=== PATIENT | female | born 1985 | race Caucasian/White ===

== ENCOUNTER 2016-12-13 16:02 | Emergency (ER) | payer BC ==
[2016-12-13] MEDS ORDERED: NORMAL SALINE 1000 ML 1,000 ML IV ONE (16:17)
--- NOTE | 2016-12-13 16:20 | ER Document Report ---
ED Medical Screen (RME) - General Chief Complaint: General Weakness Stated Complaint: FATIGUE Time Seen by Provider: 12/13/16 16:17 Mode of Arrival: Ambulatory Information source: Patient TRAVEL OUTSIDE OF THE [place] IN LAST 30 DAYS: No - HPI Patient complains to provider of: weakness/fatigue Onset: Other - pt states she was recetnly diagnosed by PCP with "mono" but has had extreme weakness, fatigue and nausea with vomiting over the past 1-2 days. - Related Data Allergies/Adverse Reactions: No Known Allergies Allergy (Verified 12/13/16 16:14) Past Medical History - Social History Frequency of alcohol use: None Drug Abuse: None Renal/ Medical History: Reports: Hx Ovarian Cysts. Denies: Hx Peritoneal Dialysis Physical Exam - Vital signs Vitals: Temp Pulse Resp BP Pulse Ox 97.9 F 82 18 113/80 100 12/13/16 16:06 12/13/16 16:06 12/13/16 16:06 12/13/16 16:06 12/13/16 16:06 Course - Vital Signs Vital signs: Temp Pulse Resp BP Pulse Ox 97.9 F 82 18 113/80 100 12/13/16 16:06 12/13/16 16:06 12/13/16 16:06 12/13/16 16:06 12/13/16 16:06
[2016-12-13 16:49] LABS: ABSOLUTE EOSINOPHILS # (AUTO) 0.1 10^3/uL (0.0-0.6); ABSOLUTE LYMPHOCYTES (AUTO) 1.5 10^3/uL (0.5-4.7); ABSOLUTE MONOCYTES (AUTO) 0.5 10^3/uL (0.1-1.4); ABSOLUTE NEUT (AUTO) 5.6 10^3/uL (1.7-8.2); BASOPHILS % (AUTO) 0.3 % (0-2); EOSINOPHILS % (AUTO) 0.9 % (0-6); HEMATOCRIT 43.8 % (36.0-47.0); HEMOGLOBIN 14.3 g/dL (12.0-15.5); HGB HCT DIFFERENCE -0.9; LYMPHOCYTES % (AUTO) 19.4 % (13-45); MEAN CORPUSCULAR HEMOGLOBIN 29.9 pg (27.0-33.4); MEAN CORPUSCULAR HGB CONC 32.5 g/dL (32.0-36.0); MEAN CORPUSCULAR VOLUME 92 fl (80-97); MONOCYTES % (AUTO) 6.7 % (3-13); RED BLOOD COUNT 4.77 10^6/uL (3.72-5.28); RED CELL DISTRIBUTION WIDTH 12.4 % (11.5-14.0); SEGMENTED NEUTROPHILS % (AUTO) 72.7 % (42-78); WHITE BLOOD COUNT 7.8 10^3/uL (4.0-10.5)
[2016-12-13 16:56] LABS: APPEARANCE,URINE SLIGHTLY-CLOUDY; BILIRUBIN,URINE NEGATIVE (NEGATIVE); GLUCOSE, URINE NEGATIVE (NEGATIVE); KETONES,URINE NEGATIVE (NEGATIVE); LEUKOCYTE ESTERASE,URINE LARGE (NEGATIVE); NITRITE,URINE NEGATIVE (NEGATIVE); PROTEIN,URINE NEGATIVE (NEGATIVE); URINE SPECIFIC GRAVITY 1.021; UROBILINOGEN,URINE NEGATIVE mg/dL (<2.0)
[2016-12-13 17:07] LABS: ALANINE AMINOTRANSFERASE 26 U/L (9-52); ALBUMIN 4.2 g/dL (3.5-5.0); ALKALINE PHOSPHATASE 78 U/L (38-126); ANION GAP 9 (5-19); ASPARTATE AMINO TRANSFERASE 20 U/L (14-36); BILIRUBIN,DIRECT 0.2 mg/dL (0.0-0.4); BILIRUBIN,TOTAL 0.5 mg/dL (0.2-1.3); BLOOD UREA NITROGEN 15 mg/dL (7-20); CALCIUM 9.3 mg/dL (8.4-10.2); CARBON DIOXIDE 27 mmol/L (22-30); CHLORIDE 102 mmol/L (98-107); CREATININE RESULT 0.72 mg/dL (0.52-1.25); GLUCOSE 122 mg/dL (75-110); POTASSIUM 4.1 mmol/L (3.6-5.0); SODIUM 138.4 mmol/L (137-145); TOTAL PROTEIN 7.6 g/dL (6.3-8.2)
--- NOTE | 2016-12-13 17:36 | RADIOLOGY REPORT (SQ) ---
EXAM DESCRIPTION: CHEST PA/LAT COMPLETED DATE/TIME: 12/13/2016 5:28 pm REASON FOR STUDY: weakness COMPARISON: None. EXAM PARAMETERS: NUMBER OF VIEWS: two views TECHNIQUE: Digital Frontal and Lateral radiographic views of the chest acquired. RADIATION DOSE: NA LIMITATIONS: none FINDINGS: LUNGS AND PLEURA: No opacities, masses or pneumothorax. No pleural effusion. MEDIASTINUM AND HILAR STRUCTURES: No masses or contour abnormalities. HEART AND VASCULAR STRUCTURES: Heart normal size. No evidence for failure. BONES: No acute findings. HARDWARE: None in the chest. OTHER: No other significant finding. IMPRESSION: NO SIGNIFICANT RADIOGRAPHIC FINDING IN THE CHEST. TECHNICAL DOCUMENTATION: JOB ID: [id number] [employer]- All Rights Reserved
--- NOTE | 2016-12-13 17:46 | ER Document Report ---
ED Dizziness/Weakness - General Chief Complaint: General Weakness Stated Complaint: FATIGUE Time Seen by Provider: 12/13/16 16:17 Mode of Arrival: Ambulatory Information source: Patient Notes: Patient is a 31-year-old female who was diagnosed with mono by blood test 2 weeks ago by her primary care provider. Patient states that she has been fatigued for a few weeks prior to going and being seen. She states that this time that she is still very fatigued and that she was also diagnosed with an enlarged spleen by her primary care provider, not by any ultrasound or other testing, and states that her left upper abdomen is still hurting her. She states that she has not had any injury to the abdomen and that she has been "protecting her spleen." She admits to some nausea today as she bent over and had some upper abdominal pain in that area, denies any vomiting, diarrhea, fever , chills, sore throat, chest pain. TRAVEL OUTSIDE OF THE [place] IN LAST 30 DAYS: No - Related Data Allergies/Adverse Reactions: No Known Allergies Allergy (Verified 12/13/16 16:14) Past Medical History - General Information source: Patient - Social History Smoking Status: Never Smoker Frequency of alcohol use: None Drug Abuse: None Family History: Reviewed & Not Pertinent Patient has suicidal ideation: No Patient has homicidal ideation: No Renal/ Medical History: Reports: Hx Ovarian Cysts. Denies: Hx Peritoneal Dialysis Review of Systems - Review of Systems Constitutional: See HPI EENT: No symptoms reported Cardiovascular: No symptoms reported Respiratory: No symptoms reported Gastrointestinal: See HPI Genitourinary: No symptoms reported Female Genitourinary: No symptoms reported Musculoskeletal: No symptoms reported Skin: No symptoms reported Hematologic/Lymphatic: No symptoms reported Neurological/Psychological: No symptoms reported Physical Exam - Vital signs Vitals: Temp Pulse Resp BP Pulse Ox 97.9 F 82 18 113/80 100 12/13/16 16:06 12/13/16 16:06 12/13/16 16:06 12/13/16 16:06 12/13/16 16:06 - Notes Notes: PHYSICAL EXAMINATION: GENERAL: Well-appearing and in no acute distress. HEAD: Atraumatic, normocephalic. EYES: Pupils equal round and reactive to light, extraocular movements intact, sclera anicteric, conjunctiva are normal. ENT: ear canals without erythema or foreign body, TMs pearly bolaños with good bony landmarks, nares patent, oropharynx clear without exudates. Moist mucous membranes. NECK: Normal range of motion, supple without lymphadenopathy LUNGS: CTAB and equal. No wheezes rales or rhonchi. HEART: Regular rate and rhythm without murmurs ABDOMEN: Soft, enlarged spleen, LUQ tenderness. No guarding, no rebound BACK: no vertebral tenderness, normal ROM GI/: no CVA tenderness EXTREMITIES: Normal range of motion, no pitting edema. No cyanosis. NEUROLOGICAL: Cranial nerves grossly intact. Normal sensory/motor exams. PSYCH: Normal mood, normal affect. SKIN: Warm, Dry, normal turgor, no rashes or lesions noted Course - Re-evaluation Re-evalutation: 12/13/16 17:43 Unremarkable today including a negative mono test, white blood cell count is normal. Patient actually looks very well. Will send patient home with instructions to drink plenty of fluids and have advised her that the fatigue may last for months after mono is diagnosed. - Vital Signs Vital signs: Temp Pulse Resp BP Pulse Ox 97.9 F 82 18 113/80 100 12/13/16 16:06 12/13/16 16:06 12/13/16 16:06 12/13/16 16:06 12/13/16 16:06 - Laboratory Result Diagrams: 12/13/16 16:20 12/13/16 16:20 Laboratory results interpreted by me: 12/13/16 12/13/16 16:20 16:20 Glucose 122 H Urine Blood SMALL H Ur Leukocyte Esterase LARGE H Discharge - Discharge Clinical Impression: Fatigue Qualifiers: Fatigue type: unspecified Qualified Code(s): R53.83 - Other fatigue Condition: Stable Disposition: HOME, SELF-CARE Instructions: Mononucleosis ([facility]) Additional Instructions: Return immediately for any new or worsening symptoms. Follow up with primary care provider, call tomorrow to make followup appointment. Prescriptions: Ondansetron [Zofran Odt 4 mg Tablet] 1 - 2 tab PO Q4H PRN #15 tab.rapdis PRN Reason: For Nausea/Vomiting
[2016-12-13 18:06] VITALS: BP 126/79
--- NOTE | 2016-12-13 20:16 | EKG REPORT ---
SEVERITY:- NORMAL ECG - SINUS RHYTHM : Confirmed by: Aiden Desouza MD 13-Dec-2016 20:15:34
== END 2016-12-13 18:05 | disposition home or self-care (01) ==
LOC: ER 16:02
DX: R53.83 Other fatigue (principal)
CPT/HCPCS: 36415; 71020; 80053; 81001; 81025; 85025; 86308; 93005; 93010; 99285

== ENCOUNTER 2017-05-19 09:28 | Day surgery (SDC) | payer BC ==
[2017-05-16 11:11] LABS: APPEARANCE,URINE SLIGHTLY-CLOUDY; BILIRUBIN,URINE NEGATIVE (NEGATIVE); GLUCOSE, URINE NEGATIVE (NEGATIVE); KETONES,URINE NEGATIVE (NEGATIVE); LEUKOCYTE ESTERASE,URINE MODERATE (NEGATIVE); NITRITE,URINE NEGATIVE (NEGATIVE); PROTEIN,URINE NEGATIVE (NEGATIVE); UROBILINOGEN,URINE NEGATIVE mg/dL (<2.0)
[2017-05-16 11:15] LABS: HEMATOCRIT 41.1 % (36.0-47.0); HEMOGLOBIN 14.1 g/dL (12.0-15.5); HGB HCT DIFFERENCE 1.2; MEAN CORPUSCULAR HEMOGLOBIN 31.2 pg (27.0-33.4); MEAN CORPUSCULAR HGB CONC 34.4 g/dL (32.0-36.0); MEAN CORPUSCULAR VOLUME 91 fl (80-97); RED BLOOD COUNT 4.52 10^6/uL (3.72-5.28); RED CELL DISTRIBUTION WIDTH 12.7 % (11.5-14.0)
[2017-05-16 11:51] LABS: ALANINE AMINOTRANSFERASE 31 U/L (9-52); ALBUMIN 4.2 g/dL (3.5-5.0); ALKALINE PHOSPHATASE 67 U/L (38-126); ANION GAP 11 (5-19); ASPARTATE AMINO TRANSFERASE 27 U/L (14-36); BILIRUBIN,DIRECT 0.1 mg/dL (0.0-0.4); BILIRUBIN,TOTAL 0.2 mg/dL (0.2-1.3); BLOOD UREA NITROGEN 17 mg/dL (7-20); CALCIUM 9.4 mg/dL (8.4-10.2); CARBON DIOXIDE 27 mmol/L (22-30); CHLORIDE 105 mmol/L (98-107); CREATININE RESULT 0.66 mg/dL (0.52-1.25); GLUCOSE 85 mg/dL (75-110); POTASSIUM 4.2 mmol/L (3.6-5.0); TOTAL PROTEIN 7.2 g/dL (6.3-8.2)
[~2017-05-19 09:28] MED LIST: CEFAZOLIN 1 GM/D5W RTU 1 GM/50 ML RTUPB IV PRN; LACTATED RINGERS 1000 ML IV PRN; LIDOCAINE 0.5% INJ-PF (5 MG/ML) 50 ML SDV SUBCUT PRN; SCOPOLAMINE HYDROBROMIDE 1.5 MG PATCH.TD72 TD PRN
[2017-05-19] MEDS ORDERED: FENTANYL CITRATE INJ/PF 100 MCG/2 ML AMPUL ONE (10:47)
[2017-05-19] MEDS ORDERED: PROPOFOL INJ 200 MG/20 ML VIAL IV ONE (10:47)
[2017-05-19] MEDS ORDERED: MIDAZOLAM 2 MG/2 ML INJ ONE (10:47)
[2017-05-19] MEDS ORDERED: ACETAMINOPHEN 100 ML IV ONE (10:48)
[2017-05-19] MEDS ORDERED: FAMOTIDINE INJ/PF 20 MG/2 ML SDV IV ONE (11:30)
[2017-05-19] MEDS ORDERED: LIDOCAINE 1% INJ-PF (10 MG/ML) 30 ML SDV ONE (11:47)
[2017-05-19] MEDS ORDERED: BUPIVACAINE HCL 0.25 % INJ/PF (2.5 MG/1 ML) 30 ML VIAL ONE (11:47)
[2017-05-19] MEDS ORDERED: PROMETHAZINE HCL INJ 25 MG/1 ML VIAL IV PRN ×2 (12:45→14:17)
[2017-05-19] MEDS ORDERED: DIPHENHYDRAMINE HCL 50 MG/ML VIAL IV PRN (12:45)
[2017-05-19] MEDS ORDERED: MORPHINE SULFATE 10 MG/ML INJ IV PRN (12:45)
[2017-05-19] MEDS ORDERED: FENTANYL CITRATE INJ/PF 100 MCG/2 ML AMPUL IV PRN ×3 (12:45)
[2017-05-19] MEDS: FENTANYL CITRATE INJ/PF 100 MCG/2 ML AMPUL ONE ×2 (13:30→13:35)
[2017-05-19] MEDS: MORPHINE SULFATE 10 MG/ML INJ ONE ×2 (13:55→14:00)
--- NOTE | 2017-05-19 14:13 | OPERATIVE REPORT E ---
Operative Report NAME: EILEEN DICKERSON : 1985 AGE: 31Y DATE OF SURGERY: 05/19/2017 ROOM: PREOPERATIVE DIAGNOSES: 1. Undesired fertility. 2. Dysfunctional uterine bleeding. POSTOPERATIVE DIAGNOSES: 1. Undesired fertility. 2. Dysfunctional uterine bleeding. SURGERIES: 1. D and C. 2. Hysteroscopy. 3. Novasure. 3. Laparoscopic tubal with Filshie clips. SURGEON: JULIAN DANG M.D. ANESTHESIA: General and 0.25% Marcaine. ESTIMATED BLOOD LOSS: Negligible. PERTINENT HISTORY AND OPERATIVE FINDINGS: This is a 31-year-old female desirous of elective sterilization who is having some trouble with irregular bleeding. Ultimately, after hearing risks and benefits, decided to go ahead with a Novasure and laparoscopic tubal. At the time of surgery, the vagina and vulva appeared to be normal. The cervix was consistent with a multiparous state. Uterus appeared to be normal. The tubes and ovaries appeared to be normal. There was a corpus luteum on the right tube measuring about 2.5 cm. The liver was visualized. It appeared to be normal. The gallbladder appeared to be normal. The *------* essentially appeared to be normal. OPERATIVE PROCEDURE: Patient was brought into the OR, placed on the table in the supine position, inducted under general anesthesia. Following this, the bladder was drained of about 200 mL of clear yellow urine and a pelvic under anesthesia was done. A vag speculum was inserted and the cervix was grasped on its anterior lip with a single-toothed tenaculum and an Allis. The cervical canal was then dilated with Hegar dilators. We did get a cervical length of 4 cm. The probe was inserted and that was consistent with 9 cm, so we had an endometrial cavity length of 5 cm. Having accomplished the dilatation, a tenaculum probe was inserted. The other equipment was removed. Attention was turned toward the abdominal wall. A Veress needle was introduced umbilically and carried through the various layers until the abdominal cavity was entered. Upon entering the abdominal cavity, approximately 3.5 L of CO2 were injected to a pressure of 15 cm of water. The opening pressure was 5 cm. Having established a pneumoperitoneum, the Veress needle was removed. A small incision was made infraumbilically. Through this incision, a trocar and sleeve were inserted. The laparoscope was then put through the sleeve after the trocar was removed. The second incision was made suprapubically. Through this incision, a trocar and sleeve were inserted. The trocar was removed, and through the sleeve, the Filshie clip applicator was inserted. The tubes had the Filshie clip applied bilaterally. We did then look around the abdomen. The liver, as stated, looked normal. She had that small cyst on the right ovary. Otherwise, everything looked okay and terminated this part of the procedure. The lower sleeve was removed. There was no evidence of active bleeding. The CO2 was allowed to escape. The upper sleeve was removed. The patient then had 4 mL of 0.25% Marcaine with 1% lidocaine injected in the subumbilical incision and another 4 mL of 0.25% Marcaine with 1% Xylocaine injected in the suprapubic incision. The fascias were then closed in both these incisions with interrupted 0 Vicryl. The skin edges were brought together and the subumbilical incision with subcuticular 4-0 Prolene in the skin edges and the suprapubic incision were closed with an interrupted 4-0 Prolene. Bandages were applied. Attention was turned back toward the pelvis. The weighted speculum was reinserted. The cervix was grasped on its anterior lip with a single-toothed tenaculum and Allis. The cervix was dilated with Hegar dilators. Before entering the hysteroscope, a curettage was carried out. There was minimal, if any, tissue return. Polyp forceps did not return any tissue. The hysteroscope was then flushed with saline and inserted through the cervix. The contents of the uterus were visualized. There was no evidence of any pathology. The excess saline was then suctioned back out and we prepared to do the Novasure. The equipment was removed. It was then flushed and gently inserted through the cervix. It was gently opened up, then going north, south, east, west, and rotating it 90 degrees in between. We developed a cavity width of 4 cm. Having established this, after doing those procedures about 3 times, the plunger was moved forward, blocking the opening of the cervix. This was held tight. The cavity was assessed. It was deemed adequate and the Novasure was empowered. The power was 110. We had a burn time of 53 seconds. Having accomplished this, the Novasure was closed and removed. The hysteroscope was then reinserted with the saline running. There was a good burn of the endometrial cavity. We sucked out the excess saline and then removed the tenaculum and Allis. There was 1 bleeding spot where the tenaculum was on the cervix. This was treated with Monsel's. This terminated the procedure. The anesthesia was stopped. The patient was placed back in supine position from the dorsal lithotomy position and transferred to recovery room in satisfactory condition. DICTATING PHYSICIAN: JULIAN DANG M.D. [id number] PHY#: [id number] ID: [id number] JOB#: [id number] ACCT: [id number] cc:JULIAN DANG M.D. >
[2017-05-19] MEDS ORDERED: OXYCODONE-ACETAMINOPHEN 5-325 MG TABLET PO PRN ×2 (14:16→14:17)
[2017-05-19] MEDS ORDERED: VECURONIUM BROMIDE INJ 10 MG VIAL IV ONE (14:36)
[2017-05-19] MEDS ORDERED: DEXAMETHASONE SOD PHOSPHATE INJ 4 MG/1 ML VIAL ONE (14:36)
[2017-05-19] MEDS ORDERED: SUCCINYLCHOLINE CHLORIDE INJ 200 MG/10 ML VIAL ONE (14:36)
[2017-05-19] MEDS ORDERED: LIDOCAINE 2% INJ-PF (20 MG/ML) 10 ML AMPUL ONE (14:36)
[2017-05-19] MEDS ORDERED: NEOSTIGMINE METHYLSULFATE 10 MG/10 ML VIAL ONE (14:36)
[2017-05-19] MEDS ORDERED: PHENYLEPHRINE HCL INJ/PF 10 MG/1 ML SDV ONE (14:36)
[2017-05-19] MEDS ORDERED: ONDANSETRON HCL INJ/PF 4 MG/2 ML SDV ONE (14:36)
[2017-05-19] MEDS ORDERED: GLYCOPYRROLATE INJ 0.4 MG/2 ML VIAL ONE (14:36)
[2017-05-19 16:12] VITALS: BP 119/76
== END 2017-05-19 15:25 | disposition home or self-care (01) ==
LOC: OROUT 09:28
PROVIDERS: ATTEND Obstetrics & Gynecology
PROC: 0UDB8ZX Extraction of Endometrium, Via Natural or Artificial Opening Endoscopic, Diagnostic (ICD-10-PCS; 2017-05-19)
PROC: 0UL74CZ Occlusion of Bilateral Fallopian Tubes with Extraluminal Device, Percutaneous Endoscopic Approach (ICD-10-PCS; principal; 2017-05-19 11:30)
PROC: 0U5B8ZZ Destruction of Endometrium, Via Natural or Artificial Opening Endoscopic (ICD-10-PCS; 2017-05-19 11:30)
DX: Z30.2 Encounter for sterilization (principal); N93.8 Other specified abnormal uterine and vaginal bleeding; N84.0 Polyp of corpus uteri
CPT/HCPCS: 36415; 85027; 81025; 80053; 81001; 88305 ×2; 58671; 58563; J2250; J0690; J1100; J3010; J3490 ×2; J2270; J2370; J0330; J2405; J2704; S0028; J0131

== ENCOUNTER 2017-08-25 17:35 | Emergency (ER) | payer BC ==
[2017-08-25] MEDS ORDERED: IBUPROFEN 800 MG TABLET PO ONE (18:08)
--- NOTE | 2017-08-25 18:17 | ER Document Report ---
ED Hand/Wrist Injury - General Chief Complaint: Hand Pain Stated Complaint: RIGHT HAND INJURY Time Seen by Provider: 08/25/17 18:04 Mode of Arrival: Ambulatory Information source: Patient Notes: 32-year-old female presents to ED for complaint of right hand pain pain. She states she was thrown from a horse and the horse stepped on her hand. Rates the top of the hand. She has full range of motion of all fingers. She has sensation to all fingers. Cap refill good to all fingers. Patient is no acute distress in the emergency room she was treated with ibuprofen ice omer crackers and eugene gael when I first examined her. We will get the x-ray on her hand and follow-up the results. TRAVEL OUTSIDE OF THE [place] 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 denies: Arthritis, CAD, COPD, CVA, DM, Hyperlipidemia, Hypertension, Thyroid Disfunction Patient has suicidal ideation: No Patient has homicidal ideation: No - Past Medical History Cardiac Medical History: Reports: None Pulmonary Medical History: Reports: None EENT Medical History: Reports: None Neurological Medical History: Reports: None Endocrine Medical History: Reports: None Renal/ Medical History: Reports: Hx Ovarian Cysts Malignancy Medical History: Reports: None GI Medical History: Reports: None Musculoskeltal Medical History: Reports None Skin Medical History: Reports None Psychiatric Medical History: Reports: None Traumatic Medical History: Reports: None Infectious Medical History: Reports: None Past Surgical History: Reports: Hx Gynecologic Surgery - No fracture, Hx Tubal Ligation - Immunizations Immunizations up to date: Yes Hx Diphtheria, Pertussis, Tetanus Vaccination: Yes Review of Systems - Review of Systems Constitutional: No symptoms reported EENT: No symptoms reported Cardiovascular: No symptoms reported Respiratory: No symptoms reported Gastrointestinal: No symptoms reported Genitourinary: No symptoms reported Female Genitourinary: No symptoms reported Musculoskeletal: Other - Right hand pain bruising swelling where a horse stepped on her hand Skin: No symptoms reported Hematologic/Lymphatic: No symptoms reported Neurological/Psychological: No symptoms reported -: Yes All other systems reviewed and negative Physical Exam - Vital signs Vitals: Temp Pulse Resp BP Pulse Ox 98.7 F 111 H 17 128/78 H 100 08/25/17 17:52 08/25/17 17:52 08/25/17 17:52 08/25/17 17:52 08/25/17 17:52 Interpretation: Normal - General General appearance: Appears well, Alert - HEENT Head: Normocephalic, Atraumatic Eyes: Normal Pupils: PERRL - Respiratory Respiratory status: No respiratory distress Chest status: Nontender Breath sounds: Normal Chest palpation: Normal - Cardiovascular Rhythm: Regular Heart sounds: Normal auscultation Murmur: No - Abdominal Inspection: Normal Distension: No distension Bowel sounds: Normal Tenderness: Nontender Organomegaly: No organomegaly - Back Back: Normal, Nontender - Extremities General upper extremity: Normal ROM, Normal temperature General lower extremity: Normal inspection, Nontender, Normal color, Normal ROM , Normal temperature, Normal weight bearing. No: Keyon's sign Hand: Tender, Abrasion, Ecchymosis, No evidence of human bite, No evidence of FB , Swelling. No: Deformity, Dislocation, Laceration, Nail injury, Tendon deficit - Neurological Neuro grossly intact: Yes Cognition: Normal Orientation: AAOx4 Emilie Coma Scale Eye Opening: Spontaneous [place] Coma Scale Verbal: Oriented Emilie Coma Scale Motor: Obeys Commands [place] Coma Scale Total: 15 Speech: Normal Motor strength normal: LUE, RUE, LLE, RLE Sensory: Normal - Psychological Associated symptoms: Normal affect, Normal mood - Skin Skin Temperature: Warm Skin Moisture: Dry Skin Color: Normal Course - Re-evaluation Re-evalutation: 08/25/17 19:55 This lady was seen today for a contusion and abrasion to the right hand after a horse stepped on her after throwing her. The x-ray does not show any fractures. There is swelling and minor abrasions to the hand. The abrasions were cleaned with Shur-Clens and saline bacitracin Telfa and Coban applied. Patient will be discharged home with instructions to follow-up with her primary doctor and an orthopedic doctor to ensure there are no occult fractures that are not visible at this time. She does have swelling and bruising to the hand. Patient was treated with ibuprofen sent home with prescription for ibuprofen with instructions to elevate and ice including the hand. Patient is able to verbalize understanding of instructions and agreement with treatment plan. - Vital Signs Vital signs: Temp Pulse Resp BP Pulse Ox 98.7 F 111 H 17 128/78 H 100 08/25/17 17:52 08/25/17 17:52 08/25/17 17:52 08/25/17 17:52 08/25/17 17:52 - Diagnostic Test Radiology reviewed: Image reviewed, Reports reviewed Discharge - Discharge Clinical Impression: Contusion of right hand Qualifiers: Encounter type: initial encounter Qualified Code(s): S60.221A - Contusion of right hand, initial encounter Abrasion of right hand Qualifiers: Encounter type: initial encounter Qualified Code(s): S60.511A - Abrasion of right hand, initial encounter Condition: Stable Disposition: HOME, SELF-CARE Additional Instructions: CONTUSION: Your injury has resulted in a contusion -- a crushing of the deep tissues. No injury to important structures was detected during the physician's exam. Contusions vary in the amount of pain they cause, and in the length of time required for healing. Typically, the area will become bruised, and will remain painful to touch for two or three weeks. However, most patients are back to working and playing within a few days. After the initial period of rest and cold-packs, your symptoms (together with the doctor's recommendations) will determine how rapidly you can get back to full activity. Usually this means "do what feels okay, but don't do things that hurt." If re-examination was recommended, it's important to follow up as instructed. Call the doctor or return any time if pain increases, if swelling becomes severe, if you develop numbness or weakness in an injured extremity, or if any other alarming symptoms occur. ABRASIONS: An abrasion is a scraping injury of the skin. Some scarring may result. The seriousness of an abrasion is not always obvious at first. Hidden tissue damage may be present and infection may occur despite proper care. Complete healing may take from ten days to as long as a month. The healing time depends on the depth of the abrasion, and on the amount of crushing of underlying tissues from the injury. Keep the wound and dressing clean. Do not shower or bathe the area until okayed by the doctor. If the dressing gets wet, remove it and blot the wound dry, then reapply a clean dressing. Dressings should be changed every day. Sunscreen should be used for six months after the skin is healed. If any signs of infection occur (swelling, redness, increasing tenderness, red streaks, profuse purulent drainage from the abrasion, tender lumps in the armpit or groin above the abrasion, or fever), see the doctor immediately. USE OF TYLENOL (ACETAMINOPHEN): Acetaminophen may be taken for pain relief or fever control. It's much safer than aspirin, offering a wider range of "safe" dosages. It is safe during . Some brand names are Tylenol, Panadol, Datril, Anacin 3, Tempra, and Liquiprin. Acetaminophen can be repeated every four hours. The following are maximum recommended dosages: WEIGHT Dose Drops Elixir Chewable( 80mg) (LBS.) drprs=droppers tsp=teaspoon 6 40 mg 0.4 ml (1/2) 6-11 80 mg 0.8 ml (full) tsp 1 tab 12-16 120 mg 1 1/2 drprs 3/4 tsp 1 1/2 tabs 17-23 160 mg 2 drprs 1 tsp 2 tabs 24-30 240 mg 3 drprs 1 1/2 tsp 3 tabs 30-35 320 mg 2 tsp 4 tabs 36-41 360 mg 2 1/4 tsp 4 1/2 tabs 42-47 400 mg 2 1/2 tsp 5 tabs 48-53 480 mg 3 tsp 6 tabs 54-59 520 mg 3 1/4 tsp 6 1/2 tabs 60-64 560 mg 3 1/2 tsp 7 tabs 65-70 600 mg 3 3/4 tsp 7 1/2 tabs 71-76 640 mg 4 tsp 8 tabs 77-82 720 mg 4 1/2 tsp 9 tabs 83-88 800 mg 5 tsp 10 tabs >89 pounds or adults 650 mg to 900 mg Acetaminophen can be repeated every four hours. Maximum dose not to exceed 4000 mg a day. These maximum recommended dosages are slightly higher than the dosages written on the product container, but these dosages are very safe and below the toxic dosage for acetaminophen. Ice & Elevation Apply ice packs frequently against the painful area. Many different schedules are recommended, such as "20 minutes on, 20 minutes off" or "one hour ice, two hours rest." If you need to work, you may need to go longer between ice treatments. You should plan to have the area ice packed AT LEAST one- fourth of the time. The ice should be applied over the wrap, tape, or splint, or over a layer of cloth -- not directly against the skin. Some ice bags have a built-in cloth and can be put directly on the skin. Your injured part should be elevated as much as possible over the next 48 hours. Try to keep the injury above the level of the heart. Avoid use of the injured area. Elevation and rest will decrease the swelling. Ibuprofen Ibuprofen is an excellent, safe drug for pain control. In addition, it has potent antiinflammatory effects which are beneficial, especially in the treatment of injuries, arthritis, or tendonitis. It's best to take ibuprofen with food. Persons with ulcer disease or allergy to aspirin should notify their physician of this before taking ibuprofen. Take the medication exactly as prescribed. Don't take additional doses unless instructed to do so by your doctor. If you develop wheezing, shortness of breath, hives, faintness, stomach pain, vomiting, or dark black stools, return for re-evaluation at once. FOLLOW-UP CARE: If you have been referred to a physician for follow-up care, call the physician s office for an appointment as you were instructed or within the next two days. If you experience worsening or a significant change in your symptoms, notify the physician immediately or return to the Emergency Department at any time for re-evaluation. Forms: Elevated Blood Pressure, Return to Work Referrals: JULIAN DANG MD [Primary Care Provider] - Follow up as needed AIXA ROSA DO [ACTIVE STAFF] - Follow up as needed
--- NOTE | 2017-08-25 18:37 | RADIOLOGY REPORT (SQ) ---
EXAM DESCRIPTION: HAND RIGHT 3 VIEWS COMPLETED DATE/TIME: 08/25/2017 6:27 pm REASON FOR STUDY: stepped on by a horse COMPARISON: None. EXAM PARAMETERS: NUMBER OF VIEWS: Three views. TECHNIQUE: AP, lateral and oblique radiographic images acquired of the right hand. LIMITATIONS: None. FINDINGS: MINERALIZATION: Normal. BONES: No acute fracture or dislocation. No worrisome bone lesions. JOINTS: No effusions. SOFT TISSUES: No soft tissue swelling. No foreign body. OTHER: No other significant finding. IMPRESSION: NEGATIVE STUDY OF THE RIGHT HAND. NO RADIOGRAPHIC EVIDENCE OF ACUTE INJURY. TECHNICAL DOCUMENTATION: JOB ID: [id number] [employer]- All Rights Reserved Reading location - IP/workstation name: [email or web address]
[2017-08-25 20:14] VITALS: BP 118/73
== END 2017-08-25 20:15 | disposition home or self-care (01) ==
LOC: ER 17:35
DX: S60.221A Contusion of right hand, initial encounter (principal); S60.511A Abrasion of right hand, initial encounter; M79.641 Pain in right hand; W55.19XA Other contact with horse, initial encounter
CPT/HCPCS: 99283

== ENCOUNTER 2018-05-27 07:14 | Emergency (ER) | payer BC ==
[2018-05-27] MEDS ORDERED: FENTANYL CITRATE INJ/PF 100 MCG/2 ML AMPUL IV ONE (08:13)
[2018-05-27] MEDS ORDERED: NORMAL SALINE 1000 ML 1,000 ML IV ONE (08:13)
[2018-05-27] MEDS ORDERED: ONDANSETRON HCL INJ/PF 4 MG/2 ML SDV IV ONE (08:13)
--- NOTE | 2018-05-27 08:15 | ER Document Report ---
ED GI/ - General Chief Complaint: Abdominal Pain Stated Complaint: ABDOMINAL CRAMPING Time Seen by Provider: 05/27/18 08:00 Mode of Arrival: Ambulatory Information source: Patient Notes: Patient presents complaining of lower pelvic pain that started yesterday. Patient states she has had intermittent episodes of lower pelvic pain that caused her to have urinary urgency and stress incontinence off and on since having an ablation procedure in 2017. Patient states that she was given a refe rral to urology but never followed up. Patient does complain of lower pelvic cramping. Patient denies any fever nausea vomiting or diarrhea. Patient denies any vaginal bleeding or discharge. Patient states her primary doctor had mentioned the possibility of interstitial cystitis. TRAVEL OUTSIDE OF THE [place] IN LAST 30 DAYS: No - HPI Patient complains to provider of: Pelvic pain. No: Vaginal discharge, Vaginal pain, Vomiting Onset: Yesterday Timing/Duration: Waxing and waning Quality of pain: Pressure Pain Level: 4 Location: Pelvis Vaginal bleeding (Compared to normal period): None Sexual history: Active Associated symptoms: Urinary urgency - After standing for any period longer than 30 minutes, Other - Pelvic pain. 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 denies: Arthritis, CAD, COPD, CVA, DM, Hyperlipidemia, Hypertension, Thyroid Disfunction - Medical History Medical History: Negative - Past Medical History Cardiac Medical History: Denies: Hx Heart Attack, Hx Hypertension Neurological Medical History: Denies: Hx Seizures Renal/ Medical History: Reports: Hx Ovarian Cysts. Denies: Hx Peritoneal Denise lysis Musculoskeletal Medical History: Denies Hx Arthritis Past Surgical History: Reports: Hx Gynecologic Surgery - No fracture, Hx Tubal Ligation - Immunizations Immunizations up to date: Yes Hx Diphtheria, Pertussis, Tetanus Vaccination: Yes Review of Systems - Review of Systems Constitutional: No symptoms reported. denies: Fever, Recent illness EENT: No symptoms reported Cardiovascular: No symptoms reported Respiratory: No symptoms reported. denies: Cough, Short of breath Gastrointestinal: Abdominal pain. denies: Vomiting Genitourinary: Incontinence, Urgency Female Genitourinary: No symptoms reported. denies: Vaginal discharge, Vaginal bleeding Musculoskeletal: No symptoms reported. denies: Back pain Skin: No symptoms reported Hematologic/Lymphatic: No symptoms reported Neurological/Psychological: No symptoms reported Physical Exam - Vital signs Vitals: Temp Pulse Resp BP Pulse Ox 98.4 F 76 16 117/74 99 05/27/18 07:21 05/27/18 07:21 05/27/18 07:21 05/27/18 07:21 05/27/18 07:21 - General General appearance: Appears well, Alert In distress: None - HEENT Head: Normocephalic, Atraumatic Eyes: Normal Conjunctiva: Normal Nasal: Normal Mouth/Lips: Normal Mucous membranes: Normal Neck: Normal, Supple - Respiratory Respiratory status: No respiratory distress Chest status: Nontender Breath sounds: Normal. No: Rales, Rhonchi, Stridor, Wheezing Chest palpation: Normal - Cardiovascular Rhythm: Regular Heart sounds: S1 appreciated, S2 appreciated Murmur: No - Abdominal Inspection: Normal Distension: No distension Bowel sounds: Normal Tenderness: Tender - RLQ Organomegaly: No organomegaly - Genitourinary External exam: Normal Speculum exam: Cervix closed Vaginal bleeding: None Bimanuel exam: Bladder/Urethral tender - Back Back: Normal, Nontender. No: CVA tenderness - Extremities General upper extremity: Normal inspection, Normal ROM General lower extremity: Normal inspection, Normal ROM - Neurological Neuro grossly intact: Yes Cognition: Normal Sherwood Coma Scale Eye Opening: Spontaneous Emilie Coma Scale Verbal: Oriented Sherwood Coma Scale Motor: Obeys Commands Emilie Coma Scale Total: 15 - Psychological Associated symptoms: Normal affect, Normal mood - Skin Skin Temperature: Warm Skin Moisture: Dry Skin Color: Normal Course - Re-evaluation Re-evalutation: 05/27/18 13:[address] Arrington regarding patient diagnostic test results. Recommends consultation with COMMUNITY CULTURAL DEVELOPMENT OFFICER. 05/27/18 13:[address] To who will speak with radiologist and then call back regarding patient CT scan report. 05/27/18 13:[address] To who spoke with radiologist who recommends having a transvaginal ultrasound performed to better evaluate this area. Initially the ultrasound had been ordered transvaginally, after speaking with the sterile processing technician, patient had told her that she needed to have a full bladder for a procedure so the sterile processing technician had initially performed a transabdominal ultrasound, instead of a transvaginal ultrasound. maintenance mechanic technician did speak with radiologist Dr. Meadows and patient will be returning for a transvaginal ultrasound at this time. Dr. To wanted to be certain that radiologist was aware that they need to evaluate the right side of the fundus and the cornual area and to know that patient had a negative quantitative hCG in addition to a ablation procedure and tubal ligation in 2017. maintenance mechanic technician was advised of order. 05/27/18 14:[address] To again regarding patient's repeat ultrasound. States that area may need to have an endometrial sampling performed and also recommends havi ng patient get a repeat ultrasound in a couple weeks. - Vital Signs Vital signs: Temp Pulse Resp BP Pulse Ox 98.3 F 90 16 116/66 98 05/27/18 14:57 05/27/18 14:57 05/27/18 07:21 05/27/18 14:57 05/27/18 14:57 - Laboratory Result Diagrams: 05/27/18 08:02 05/27/18 08:02 Laboratory results interpreted by me: 05/27/18 05/27/18 08:30 08:48 Ur Leukocyte Esterase TRACE H Chlamydia DNA (PCR) DETECTED H Discharge - Discharge Clinical Impression: Pelvic pain, Chlamydia, PID (acute pelvic inflammatory disease), endometrial cyst Condition: Stable Disposition: HOME, SELF-CARE Instructions: Anti-Inflammatory Medication ([facility]), Chlamydia ([facility]), Growth or Mass, Pending Workup ([facility]), Pelvic Inflammatory Disease ([facility]) Additional Instructions: Return immediately for any new or worsening symptoms Followup with your primary care provider, call tomorrow to make a followup appointment Follow-up with your station attendant for repeat examination. You will need a repeat ultrasound in a few weeks. You may also possibly need an endometrial sampling performed of endometrial cystic area. Your COMMUNITY CULTURAL DEVELOPMENT OFFICER provider can discuss this with you. Have your partner seek treatment for chlamydia Prescriptions: Doxycycline Hyclate 100 mg PO BID #28 capsule Metronidazole [Flagyl 500 mg Tablet] 500 mg PO BID #20 tablet Naproxen [Naprosyn 250 Nmg Tablet] 1 tab PO BID #14 tablet Forms: Return to Work Referrals: JULIAN DANG MD [Primary Care Provider] - Follow up in 3-5 days
[2018-05-27 08:34] LABS: ALANINE AMINOTRANSFERASE 22 U/L (9-52); ALBUMIN 3.9 g/dL (3.5-5.0); ALKALINE PHOSPHATASE 51 U/L (38-126); ANION GAP 6 (5-19); ASPARTATE AMINO TRANSFERASE 21 U/L (14-36); BILIRUBIN,DIRECT 0.2 mg/dL (0.0-0.4); BILIRUBIN,TOTAL 0.5 mg/dL (0.2-1.3); BLOOD UREA NITROGEN 18 mg/dL (7-20); CALCIUM 9.5 mg/dL (8.4-10.2); CARBON DIOXIDE 28 mmol/L (22-30); CHLORIDE 106 mmol/L (98-107); GLUCOSE 105 mg/dL (75-110); POTASSIUM 4.4 mmol/L (3.6-5.0); SODIUM 139.7 mmol/L (137-145); TOTAL PROTEIN 6.3 g/dL (6.3-8.2)
[2018-05-27 08:39] LABS: ABSOLUTE EOSINOPHILS # (AUTO) 0.1 10^3/uL (0.0-0.6); ABSOLUTE LYMPHOCYTES (AUTO) 1.7 10^3/uL (0.5-4.7); ABSOLUTE MONOCYTES (AUTO) 0.4 10^3/uL (0.1-1.4); ABSOLUTE NEUT (AUTO) 4.6 10^3/uL (1.7-8.2); BASOPHILS % (AUTO) 0.4 % (0-2); EOSINOPHILS % (AUTO) 1.1 % (0-6); HEMATOCRIT 43.3 % (36.0-47.0); HEMOGLOBIN 14.7 g/dL (12.0-15.5); LYMPHOCYTES % (AUTO) 24.6 % (13-45); MEAN CORPUSCULAR HEMOGLOBIN 31.4 pg (27.0-33.4); MEAN CORPUSCULAR HGB CONC 33.9 g/dL (32.0-36.0); MEAN CORPUSCULAR VOLUME 93 fl (80-97); MONOCYTES % (AUTO) 6.1 % (3-13); PLATELET COUNT 276 10^3/uL (150-450); RED BLOOD COUNT 4.68 10^6/uL (3.72-5.28); RED CELL DISTRIBUTION WIDTH 12.6 % (11.5-14.0); SEGMENTED NEUTROPHILS % (AUTO) 67.8 % (42-78); TOTAL CELLS COUNTED % (AUTO) 100 %; WHITE BLOOD COUNT 6.8 10^3/uL (4.0-10.5)
[2018-05-27] MEDS ORDERED: MORPHINE SULFATE 10 MG/ML INJ IV ONE (08:55)
[2018-05-27 09:08] LABS: APPEARANCE,URINE CLEAR; BILIRUBIN,URINE NEGATIVE (NEGATIVE); COLOR,URINE YELLOW; GLUCOSE, URINE NEGATIVE (NEGATIVE); KETONES,URINE NEGATIVE (NEGATIVE); LEUKOCYTE ESTERASE,URINE TRACE (NEGATIVE); NITRITE,URINE NEGATIVE (NEGATIVE); PROTEIN,URINE NEGATIVE (NEGATIVE); URINE SPECIFIC GRAVITY 1.017; UROBILINOGEN,URINE NEGATIVE mg/dL (<2.0)
[2018-05-27 09:13] LABS: T.VAGINALIS (WET MOUNT) NO TRICHOMONAS SEEN; YEAST (WET MOUNT) NO YEAST SEEN
[2018-05-27 09:14] LABS: BACTERIA (WET MOUNT) 3+ BACTERIA SEEN; EPITHELIALS (WET MOUNT) 3+ EPITHELIALS SEEN; WBCS (WET MOUNT) 3+ WBCS SEEN
[2018-05-27 10:41] LABS: CHLAM PCR DETECTED (NOT DETECT); GON PCR NOT DETECTED (NOT DETECT)
--- NOTE | 2018-05-27 12:04 | RADIOLOGY REPORT (SQ) ---
EXAM DESCRIPTION: U/S NON OB PEL W/DOPPLER COMPLETED DATE/TIME: 05/27/2018 11:24 am REASON FOR STUDY: pelvic pain LMP 1 year ago. COMPARISON: 05/18/2015 TECHNIQUE: Dynamic and static grayscale images acquired of the pelvis via transabdominal approach an d recorded on PACS. Additional selected color Doppler and spectral images recorded. LIMITATIONS: None. FINDINGS: UTERUS: Contour normal. No mass. ENDOMETRIAL STRIPE: No focal or generalized thickening. No masses. CERVIX: 1.7 cm. RIGHT OVARY AND DOPPLER: Normal size. No worrisome masses. Normal arterial vascular flow without evid ence for torsion. LEFT OVARY AND DOPPLER: Normal size. No worrisome masses. Normal arterial vascular flow without evide nce for torsion. FREE FLUID: None noted. OTHER: No other significant finding. MEASUREMENTS: UTERUS: 6.9 x 4.6 x 3.7 cm. ENDOMETRIAL STRIPE: 6 mm. RIGHT OVARY: 3.2 x 2.4 x 2 cm. LEFT OVARY: 3.5 x 2.8 x 3.2 cm. IMPRESSION: NORMAL PELVIC ULTRASOUND BY TRANSABDOMINAL TECHNIQUE. TECHNICAL DOCUMENTATION: JOB ID: [id number] [employer]- All Rights Reserved Rev-10/17 Reading location - IP/workstation name: [email or web address]
--- NOTE | 2018-05-27 12:23 | RADIOLOGY REPORT (SQ) ---
EXAM DESCRIPTION: CT ABD/PELVIS WITH IV ORAL COMPLETED DATE/TIME: 05/27/2018 12:04 pm REASON FOR STUDY: RLQ pain COMPARISON: None. TECHNIQUE: CT scan of the abdomen and pelvis performed using helical scanning technique with dynamic intravenous contrast injection. Oral contrast. Images reviewed with lung, soft tissue, and bone win dows. Reconstructed coronal and sagittal MPR images reviewed. Delayed images for evaluation of the ur inary system also acquired. All images stored on PACS. All CT scanners at this facility use dose modulation, iterative reconstruction, and/or weight based d osing when appropriate to reduce radiation dose to as low as reasonably achievable (ALARA). [facility]: Dose Right [facility]: CareDose [facility]: Dose Right [facility]: Teradose 4D [facility]: [employer] CONTRAST TYPE AND DOSE: contrast/concentration: Isovue 350.00 mg/ml; Total Contrast Delivered: 79.0 ml; Total Saline Delivered: 68.0 ml RENAL FUNCTION: BUN 18 creatinine 0.7 RADIATION DOSE: CT Rad equipment meets quality standard of care and radiation dose reduction techniq ues were employed. CTDIvol: 5.4 - 7.4 mGy. DLP: 738 mGy-cm.. LIMITATIONS: None. FINDINGS: LOWER CHEST: No significant findings. No nodules or infiltrates. LIVER: Normal size. No masses. No dilated ducts. SPLEEN: Normal size. No focal lesions. PANCREAS: No masses. No significant calcifications. No adjacent inflammation or peripancreatic fluid collections. Pancreatic duct not dilated. GALLBLADDER: No identified stones by CT criteria. No inflammatory changes to suggest cholecystitis. ADRENAL GLANDS: No significant masses or asymmetry. RIGHT KIDNEY AND URETER: No solid masses. No significant calcifications. No hydronephrosis or hyd roureter. LEFT KIDNEY AND URETER: No solid masses. No significant calcifications. No hydronephrosis or hydr oureter. AORTA AND VESSELS: No aneurysm. No dissection. Renal arteries, SMA, celiac without stenosis. RETROPERITONEUM: No retroperitoneal adenopathy, hemorrhage or masses. BOWEL AND PERITONEAL CAVITY: No masses or inflammatory changes. No free fluid or peritoneal masses. APPENDIX: Normal. PELVIS: There is an eccentrically located fluid collection in the right side of the uterine fundus th at measures about 2 cm. ABDOMINAL WALL: No masses. No hernias. BONES: No significant or acute findings. OTHER: No other significant finding. IMPRESSION: A fluid collection in the uterus as described. Slightly concerning for a cornual ectopi c . Is there a positive test? Consider transvaginal ultrasound for better evalua tion of the uterus. TECHNICAL DOCUMENTATION: JOB ID: [id number] Quality ID # [id number]: Final reports with documentation of one or more dose reduction techniques (e.g., Au tomated exposure control, adjustment of the mA and/or kV according to patient size, use of iterative reconstruction technique) 2010 [employer]- All Rights Reserved Reading location - IP/workstation name: [email or web address]
[2018-05-27] MEDS ORDERED: METRONIDAZOLE 500 MG TABLET PO ONE (13:20)
[2018-05-27] MEDS ORDERED: CEFTRIAXONE INJ 250 MG VIAL IV ONE (13:20)
[2018-05-27] MEDS ORDERED: DOXYCYCLINE HYCLATE 100 MG TABLET PO ONE (13:20)
--- NOTE | 2018-05-27 14:27 | RADIOLOGY REPORT (SQ) ---
EXAM DESCRIPTION: U/S NON OB PEL TV W/DOPPLER COMPLETED DATE/TIME: 05/27/2018 2:12 pm REASON FOR STUDY: RLQ pain, eval fundus R cornual, 2017 BTL, ablatio COMPARISON: Pelvic ultrasound 05/18/2015, 05/27/2018 CT abdomen pelvis 05/27/2018 TECHNIQUE: Dynamic and static grayscale images acquired of the pelvis via transvaginal approach and recorded on PACS. Additional selected color Doppler and spectral images recorded. LIMITATIONS: None. FINDINGS: UTERUS: Contour normal. No mass. Uterus is 7 x 5 x 4 cm in size. ENDOMETRIAL STRIPE: Patient has had a tubal ligation, today's HCG is negative. The endometrial strip e measures about 6 mm in thickness. In the right fundal endometrium, a complex cyst with layering de bris is present measuring about 2.4 by 1.5 cm in size. This is in the right fundal endometrium, in t he area of concern on prior CT exam earlier today. This could represent adhesions with hemorrhagic c yst formation in the endometrial canal post endometrial ablation. CERVIX: Closed, 3 cm in length with few small nabothian cysts present. RIGHT OVARY AND DOPPLER: Normal size, 3.2 x 2.4 x 2 cm in size. No worrisome masses. Normal arterial vascular flow without evidence for torsion. LEFT OVARY AND DOPPLER: Normal size, 3.5 x 2.8 x 3.2 cm in size. No worrisome masses. Normal arterial vascular flow without evidence for torsion. FREE FLUID: None noted. OTHER: No other significant finding. IMPRESSION: Complex cyst with layering debris in the rightward fundal endometrium, correlates with f indings on CT exam 05/27/2018. This most likely represents hemorrhagic cyst formation in the endomet rial canal post prior endometrial ablation. This report was called to Dr To, 1415 hours 05/27/2018 TECHNICAL DOCUMENTATION: JOB ID: [id number] [employer]- All Rights Reserved Rev Reading location - IP/workstation name: [email or web address]
[2018-05-27 15:02] VITALS: BP 116/66
== END 2018-05-27 15:02 | disposition home or self-care (01) ==
LOC: ER 07:14
DX: A56.11 Chlamydial female pelvic inflammatory disease (principal); N85.8 Other specified noninflammatory disorders of uterus; R10.2 Pelvic and perineal pain; R10.9 Unspecified abdominal pain; R39.15 Urgency of urination
CPT/HCPCS: 99284; 96361; 96375; 96365; 36415; 87210; 84703; 85025; 80053; 81001; 87491; 87591; 76856; 76830; 93976; 74177; J3010; J2405; J7030; J0696